=== PATIENT | female | born 1970 | race American Indian/Alaskan Native ===

== ENCOUNTER 2021-07-15 07:54 | Emergency (ER) | payer OTHER ==
--- NOTE | 2021-07-15 08:13 | Emergency Department Report ---
ED Lower Extremity [facility] - General Chief Complaint: Extremity Injury, Lower Stated Complaint: RIGHT LEG PAIN Time Seen by Provider: 07/15/21 08:09 Source: patient Mode of arrival: Wheelchair Limitations: No Limitations - History of Present Illness Initial Comments: Patient presents with a 1 week history of right leg pain. The pain started in the right hip and is extended downward. There is no trauma associated with this. The pain is constant and aching. It is worse with movement. She has noticed bruising and swelling to the leg. She had COVID back in May. She is concerned that she may have a blood clot. She has never had a DVT before. She has no chest pain. There is no history of immobility other than the fact that she was not moving as much with coronavirus. Patient is not on blood thinners. There is no family history of DVT. She has not taken anything yet for the pain. - Related Data Previous Rx's Medication Instructions Recorded Last Taken Type Ibuprofen [Motrin] 600 mg PO Q8H PRN #30 tablet 07/15/21 Unknown Rx Allergies Allergy/AdvReac Type Severity Reaction Status Date / Time No Known Allergies Allergy Unverified 07/15/21 08:08 ED Review of Systems ROS: Stated complaint: RIGHT LEG PAIN Other details as noted in HPI ED Past Medical Hx - Medications Home Medications: Home Medications Medication Instructions Recorded Confirmed Last Taken Type Ibuprofen [Motrin] 600 mg PO Q8H PRN #30 tablet 07/15/21 Unknown Rx ED Physical Exam - General Limitations: No Limitations, Other (Pulse ox noted and normal) General appearance: alert, in no apparent distress, obese, other (Uncomfortable) - Head Head exam: Present: atraumatic, normocephalic - Eye Eye exam: Present: normal appearance, EOMI - ENT ENT exam: Present: normal orophraynx, normal external ear exam - Neck Neck exam: Present: normal inspection. Absent: meningismus - Respiratory Respiratory exam: Present: normal lung sounds bilaterally. Absent: respiratory distress - Cardiovascular Cardiovascular Exam: Present: regular rate, normal rhythm - GI/Abdominal GI/Abdominal exam: Present: soft. Absent: distended - Extremities Exam Extremities exam: Present: normal capillary refill, other (Ecchymoses in various different locations involving the right leg. There is diffuse tenderness with palpation over the right sacroiliac joint) - Back Exam Back exam: Absent: CVA tenderness (R), CVA tenderness (L) - Neurological Exam Neurological exam: Present: alert, oriented X3 - Psychiatric Psychiatric exam: Present: normal affect, normal mood - Skin Skin exam: Present: warm, dry ED Course Vital Signs 07/15/21 07/15/21 08:00 10:11 Temperature 98.1 F 98.1 F Pulse Rate 73 73 Respiratory 18 18 Rate Blood Pressure 149/78 Blood Pressure 167/88 [Left] O2 Sat by Pulse 100 100 Oximetry - Reevaluation(s) Reevaluation #1: 07/15/21 08:11 Ultrasound was ordered. Old records noted. Reevaluation #2: 07/15/21 10:18 Venous Doppler was noted. Patient was discharged. ED Lower Extremity MDM - Radiology Data Radiology results: report reviewed - Medical Decision Making Patient presented with nontraumatic right leg pain. She had a recent diagnosis of COVID was concern for DVT. Venous Doppler was negative for clot. There is some bruising noted, but there is no bruising throughout the rest of the body. I am not concerned that this would represent any kind of platelet disorder or coagulopathy given that this is limited to 1 extremity. She certainly could have sciatic problems and the pain from the right hip down the right leg seem to be consistent with that. There was no direct trauma to suggest acute fracture or subluxation or dislocation. She was treated symptomatically and referred for outpatient evaluation and follow-up. Critical care attestation.: If time is entered above; I have spent that time in minutes in the direct care of this critically ill patient, excluding procedure time. ED Disposition Clinical Impression: Right leg pain Disposition: HOME / SELF CARE / HOMELESS Is pt being admited?: No Condition: Stable Instructions: How to Use Cold Therapy, Pain Without a Known Cause Additional Instructions: Ice and elevate the leg. Drink plenty water. Return for problems. Follow-up with your regular doctor for recheck and further management. Prescriptions: Ibuprofen [Motrin] 600 mg PO Q8H PRN #30 tablet PRN Reason: Pain Referrals: RHONDA VERMA MD [Primary Care Provider] - 3-5 Days
--- NOTE | 2021-07-15 09:21 | Vascular Lab Report ---
DUPLEX DOPPLER LOWER EXTREMITY VEINS, RIGHT INDICATION / CLINICAL INFORMATION: pain/swelling post covid. TECHNIQUE: Duplex doppler imaging was performed through the veins of the right lower extremity using venous comp ression and other maneuvers. COMPARISON: None available. FINDINGS: RIGHT COMMON FEMORAL VEIN: Negative. RIGHT FEMORAL VEIN: Negative. RIGHT POPLITEAL VEIN: Negative. RIGHT CALF VEINS: Negative. ADDITIONAL FINDINGS: None. IMPRESSION: 1. No sonographic evidence for DVT in the right lower extremity. Signer Name: Gamal Tinoco MD Signed: 07/15/2021 9:17 AM Workstation Name: [id number]
[2021-07-15] MEDS ORDERED: IBUPROFEN 800 MG TAB PO ONE (10:08)
[2021-07-15 10:17] VITALS: BP 167/88
== END 2021-07-15 10:30 | disposition home or self-care (01) ==
LOC: ED 07:54
DX: M79.604 Pain in right leg (principal)
CPT/HCPCS: 99283